=== PATIENT | male | born 1980 | race Caucasian/White ===

== ENCOUNTER 2022-01-31 09:30 | Emergency (ER) | payer MEDICAID ==
[~2022-01-31] VITALS: Ht 175.3 cm; Wt 113.6 kg
[2022-01-31 09:46] VITALS: BP 150/96
[2022-01-31] MEDS ORDERED: naproxen 500mg tablet PO ONE (10:25)
[2022-01-31] MEDS ORDERED: NAPR-56 PO (10:26)
== END 2022-01-31 10:50 | disposition home or self-care (01) ==
LOC: ER 09:30
DX: S93.401A Sprain of unspecified ligament of right ankle, initial encounter (principal); W17.89XA Other fall from one level to another, initial encounter; Y93.89 Activity, other specified; Y92.89 Other specified places as the place of occurrence of the external cause; Y99.8 Other external cause status
CPT/HCPCS: 29505; 73610; 99283

== ENCOUNTER 2024-04-14 10:46 | Emergency (ER) | payer MEDICAID, OTHER ==
[~2024-04-14] VITALS: Ht 175.3 cm; Wt 90.9 kg
[2024-04-14 11:36] LABS: BASOPHILS # (AUTO) 0.1 X10'3 (0-0.2); BASOPHILS % (AUTO) 0.5 % (0-1); EOSINOPHILS # (AUTO) 0.1 X10'3 (0-0.9); EOSINOPHILS % (AUTO) 0.7 % (0-6); HEMATOCRIT 46.5 % (42.0-52.0); HEMOGLOBIN 15.8 g/dl (14.0-17.9); LYMPHOCYTES # (AUTO) 1.8 X10'3 (1.1-4.8); LYMPHOCYTES % (AUTO) 18.2 % (21-51); MEAN CORPUSCULAR HGB CONC 33.9 g/dL (33.0-36.5); MEAN CORPUSCULAR VOLUME 85.5 FL (78-98); MEAN PLATELET VOLUME 7.7 FL (7.4-10.4); MONOCYTES # (AUTO) 0.8 X10'3 (0-0.9); NEUTROPHILS % (AUTO) 72.6 % (42-75); PLATELET COUNT 383 X10'3 (140-440); RED BLOOD COUNT 5.44 X10'6 (4.70-6.10); RED CELL DISTRIBUTION WIDTH 13.6 % (11.5-14.5); WHITE BLOOD COUNT 9.7 X10'3 (4.5-11.0)
[2024-04-14 11:56] LABS: ALBUMIN 3.6 G/DL (3.4-5.0); ANION GAP 6 (8-16); BLOOD UREA NITROGEN 11 MG/DL (7-18); BUN/CREATININE RATIO 11.5 (10.0-20.0); CALCIUM 9.3 MG/DL (8.5-10.1); CHLORIDE 102 MMOL/L (99-107); CREATININE 0.96 MG/DL (0.60-1.10); GLUCOSE 172 MG/DL (70-104); POTASSIUM 3.8 MMOL/L (3.5-5.1); PRO BRAIN NATRIURETIC PEPTIDE < 30 PG/ML (0-125); SODIUM 137 MMOL/L (135-145); TOTAL CARBON DIOXIDE 29.5 MMOL/L (24-32); eCRCL 100 ML/MIN; eGFR 86 ML/MIN
[2024-04-14] MEDS ORDERED: OMEP40CA21 PO (12:09)
[2024-04-14] MEDS: mag hydrox/Alum hydrox/simeth 30ml oral suspension PO ONE (12:31)
[2024-04-14] MEDS: LIDOcaine 2% Viscous 15ml cup MM ONE (12:31)
[2024-04-14 12:36] VITALS: BP 121/87; PULSE 95; RESP 19; TEMP 98.9; O2SAT 98
== END 2024-04-14 12:33 | disposition home or self-care (01) ==
LOC: ER 10:47
DX: K21.9 Gastro-esophageal reflux disease without esophagitis (principal); R07.89 Other chest pain; Z79.899 Other long term (current) drug therapy
CPT/HCPCS: 36415; 71045; 80048; 83880; 84484; 85025; 93005; 99285

== ENCOUNTER 2024-09-22 20:40 | Emergency (ER) | payer MEDICAID ==
[~2024-09-22] VITALS: Ht 175.3 cm; Wt 131.6 kg
[2024-09-22] MEDS ORDERED: IBUP-1984 PO (21:52)
[2024-09-22] MEDS ORDERED: TAM75C PO (21:52)
[2024-09-22] MEDS: acetaminophen 325mg tablet PO ONE ×2 (22:00→22:06)
[2024-09-22] MEDS: oseltamivir phos 75mg capsule PO ONE (22:00)
[2024-09-22] MEDS: ketorolac trometh 15mg/ml vial 15 MG/ML ML IM ONE (22:01)
[2024-09-22 23:08] VITALS: BP 123/73; PULSE 99; RESP 18; TEMP 98.9; O2SAT 97
== END 2024-09-22 23:19 | disposition home or self-care (01) ==
LOC: ER 20:41
DX: J10.1 Influenza due to other identified influenza virus with other respiratory manifestations (principal); Z20.822 Contact with and (suspected) exposure to COVID-19
CPT/HCPCS: 36415; 87502; 87503; 87811; 96372; 99283; J1885

== ENCOUNTER 2025-06-15 18:16 | Emergency (ER) | payer MEDICAID ==
[~2025-06-15] VITALS: Ht 175.3 cm; Wt 127.6 kg
[2025-06-15 18:19] VITALS: TEMP 97
--- NOTE | 2025-06-15 18:23 | ELECTROCARDIOGRAPH REPORT ---
[facility] Test Date: 2025-06-15 Test Time: 18:21:07 Pat Name: ADRI CASTRO Department: EMERGENCY ROOM [id number] Room: Gender: M [employer]: : 1980 Requested By: FABIAN ARRIAGA Order Number: [id number] Reading MD: Measurements Intervals [place] Rate: 91 P: 59 NV: 135 QRS: 46 QRSD: 90 T: 16 QT: 339 QTc: 418 Interpretive Statements Sinus rhythm Low voltage, precordial leads Minimal ST depression, diffuse leads Baseline wander in lead(s) I,II,aVR Please click the below link to view image of tracing.
--- NOTE | 2025-06-15 18:40 | RADIOLOGY REPORT ---
CHEST RADIOGRAPH Indication: CP Technique: Single frontal view of the chest was obtained Comparison: DI CHEST,SINGLE VIEW on DOS: 04/14/24 FINDINGS: Lines and Tubes: None Lungs: No focal consolidation. Pleura: No effusion. No pneumothorax. Cardiomediastinal contours: Unremarkable Bones: No acute osseous abnormality. IMPRESSION: No acute cardiopulmonary disease.
[2025-06-15 18:54] LABS: MEAN PLATELET VOLUME 7.5 FL (7.4-10.4); RED CELL DISTRIBUTION WIDTH 13.4 % (11.5-14.5)
[2025-06-15 19:13] LABS: CREATININE 0.87 MG/DL (0.60-1.10); PRO BRAIN NATRIURETIC PEPTIDE < 30 PG/ML (0-125); TOTAL CARBON DIOXIDE 31.4 MMOL/L (24-32); eCRCL 109 ML/MIN; eGFR > 90 ML/MIN
[2025-06-15 20:33] VITALS: BP 151/97; PULSE 80; RESP 16; O2SAT 98
--- NOTE | 2025-06-15 21:31 | Physician Documentation ---
History of Present Illness ~ Chief Complaint: Chest Pain Stated Complaint: CHEST PAIN Time Seen by MD: 19:38 Primary Medical Doctor: [facility] Mode of Arrival: Ambulatory HPI Patient is seen today with complaints of intermittent chest pain. Patient denies any history of TX or cardiovascular disease. Patient admits to being close to prediabetic. Patient does admit to history of GERD and PUD and treatment with GI cocktail and antacids. Patient denies any significant aggravating or relieving factors of his epigastric abdominal pain/lower chest pain. He currently denies any shortness of breath or nausea, vomiting, diarrhea. Patient also does admit to significant dental pain and history of dental abscesses and states he would like an antibiotic. Patient has no other concern or complaint at this time. Medication Reconciliation Allergies: Coded Allergies: No Known Allergies (Unverified , 06/15/25) Past Medical History Past Medical History: No Pertinent History Past Surgical History: noncontributory Drug Use: none Lives In: Home Review of Systems Constitutional: Denies: chills, fever, weakness Eyes: Denies: pain, blurred vision ENT: Denies: ear pain, nose pain, throat pain, mouth pain Respiratory: Denies: cough, shortness of breath Cardiovascular: Denies: chest pain, palpitations Gastrointestinal: Denies: abdominal pain, nausea, vomiting Genitourinary: Denies: burning, dysuria Male Genitalia: Denies: penile discharge, testicular pain Neurological: Denies: headache, dizziness Musculoskeletal: Denies: pain, swelling Integumentary: Denies: rash, lesions Allergic/Immunologic: Denies: hives, itching Hematologic/Lymphatic: Denies: no symptoms reported Psychiatric: Denies: depression, anxiety Physical Exam Vital Signs: Temperature: 97.0, Heart Rate: 80, Respiratory Rate: 16, BP: 151/97, Pulse Oximetry: 98, Weight: 127.600 Oxygen Flow Rate: 0 Physical Exam General: Awake and Alert, no acute distress. HEENT: Patient on exam does have significant dental decay of left lower molars without periapical abscess visualized. Conjunctiva pink, Sclera clear, Mucus Me mbranes moist. Neck: Supple without masses and tenderness. Resp: Unlabored. Lungs clear to auscultation bilaterally. Heart: Regular Rate and rhythm, normal S1 and S2 without murmur, rub or gallop. Abdomen: Soft and mild epigastric tenderness to palpation, no organomegaly, no guarding, no rebound tenderness, normoactive bowel sounds. Extremities: No cyanosis,clubbing or edema. Skin: Warm and Dry. Progress Results/Orders Results/Orders Completed Orders - NAT CORMIER Amoxicillin Capsule (Trimox Capsule) (06/15/25 20:57) Mag & Alum Hydrox/Simeth Susp (Maalox Or (06/15/25 20:57) Lidocaine 2% Viscous (Xylocaine 2% Visco (06/15/25 20:57) Pantoprazole Tablet (Protonix) (06/15/25 20:57) Medications Received in ER Medications (Trade) Dose Ordered Sig/Anderson Route PRN Reason Start Time Stop Time Status Last Admin Dose Admin (Trimox capsule) 1,000 mg ONCE STAT PO 06/15/25 20:57 06/15/25 21:00 DC 06/15/25 22:06 1,000 MG (Maalox oral suspension) 30 ml ONCE STAT PO 06/15/25 20:57 06/15/25 21:00 DC 06/15/25 22:05 30 ML (Xylocaine 2% Viscous 15mL cup) 15 ml ONCE STAT MM 06/15/25 20:57 06/15/25 21:00 DC 06/15/25 22:05 15 ML (Protonix) 40 mg ONCE STAT PO 06/15/25 20:57 06/15/25 21:00 DC 06/15/25 22:06 40 MG Vital Signs 06/15/25 06/15/25 06/15/25 18:19 20:30 20:33 Temp 97.0 Pulse 90 80 Resp 16 16 16 B/P (MAP) 152/91 151/97 (115) Pulse Ox 98 98 O2 Flow Rate 0 0 Laboratory Tests Test 06/15/25 18:21 06/15/25 20:38 06/15/25 21:23 White Blood Count 10.3 Red Blood Count 5.67 Hemoglobin 16.5 Hematocrit 47.0 Mean Corpuscular Volume 82.9 Mean Corpuscular Hemoglobin 29.1 Mean Corpuscular Hemoglobin Concent 35.1 Red Cell Distribution Width 13.4 Platelet Count 393 Mean Platelet Volume 7.5 Neutrophils (%) (Auto) 68.0 Lymphocytes (%) (Auto) 22.2 Monocytes (%) (Auto) 8.1 Eosinophils (%) (Auto) 0.9 Basophils (%) (Auto) 0.8 Neutrophils # (Auto) 7.0 Lymphocytes # (Auto) 2.3 Monocytes # (Auto) 0.8 Eosinophils # (Auto) 0.1 Basophils # (Auto) 0.1 CBC Comment Sodium Level 139 Potassium Level 3.6 Chloride Level 100 Carbon Dioxide Level 31.4 Anion Gap 8 Blood Urea Nitrogen 7 Creatinine 0.87 Estimated GFR/1.73 m2 > 90 BUN/Creatinine Ratio 8.0 L Glucose Level 212 H Calcium Level 8.9 Troponin I High Sensitivity < 4 L 4 < 4 L Troponin I High Sens Percent Delta Troponin I Hi Sens Absolute Change Pro-B-Type Natriuretic Peptide < 30 Albumin 3.6 Chemistry Comments Heart Score: Heart Score Response (Comments) Value History Slightly Suspicious 0 EKG Normal 0 Age <45 0 Risk Factors 1 or 2 risk factors 1 Troponin Normal limit 0 Total 1 Medical Decision Making Additional information obtaine: N/A Findings Patient is seen today with complaints of intermittent chest pain. Patient denies any history of TX or cardiovascular disease. Patient admits to being close to prediabetic. Patient does admit to history of GERD and PUD and treatment with GI cocktail and antacids. Patient denies any significant aggravating or relieving factors of his epigastric abdominal pain/lower chest pain. He currently denies any shortness of breath or nausea, vomiting, diarrhea. Patient also does admit to significant dental pain and history of dental abscesses and states he would like an antibiotic. Patient has no other concern or complaint at this time. Patient did receive GI cocktail in the ED today which did help alleviate patient's symptoms. Patient also received amoxicillin 1000 mg by mouth in the ED today for dental abscess. Prescription for antacid and sucralfate sent to patient's pharmacy to be taken as prescribed. Prescription of amoxicillin 875 mg one tab by mouth twice a day for 10 days sent to patient's pharmacy [id number] in [place]. Patient will follow up with primary care in 5-10 days if no better as needed sooner. Return to ED with any worsening, concerning or changing symptoms. Heart Score: 1 Differential Dx:Considerations: Include: angina, chest wall pain, esophageal reflux/spasm, gastritis, pericarditis Departure Disposition: HOME / SELF CARE / HOMELESS Impression: Primary Impression: Chest pain Qualified Codes: R07.9 - Chest pain, unspecified Additional Impressions: PUD (peptic ulcer disease) Dental abscess Condition: Improved Discharge Instructions: Nonspecific Chest Pain, Adult Additional Instructions: Patient did receive GI cocktail in the ED today which did help alleviate patient's symptoms. Patient also received amoxicillin 1000 mg by mouth in the ED today for dental abscess. Prescription for antacid and sucralfate sent to patient's pharmacy to be taken as prescribed. Prescription of amoxicillin 875 mg one tab by mouth twice a day for 10 days sent to patient's pharmacy [facility] in [place]. Patient will follow up with primary care in 5-10 days if no better as needed sooner. Return to ED with any worsening, concerning or changing symptoms. Referrals: NO PRIMARY CARE PROVIDER (PCP) Prescriptions Pantoprazole Sodium (PROTONIX tablet) 40 Mg Tablet.dr 1 TAB PO DAILY for 30 Days, #30 TAB 0 Refills Prov: NAT CORMIER 06/15/25 Sucralfate (Sucralfate) 1 Gram Tablet 1 TAB PO Q8H for 10 Days, #30 TAB 0 Refills Prov: NAT CORMIER 06/15/25 Amoxicillin Trihydrate (Amoxicillin) 875 Mg Tablet 1 TAB PO Q12H for 10 Days, #20 TAB Prov: NAT CORMIER 06/15/25 Signature Scribe Signature: No scribe Attestation: No scribe NAT CORMIER Jun 15, 2025 21:31
[2025-06-15] MEDS: LIDOcaine 2% Viscous 15ml cup MM STA (22:05)
[2025-06-15] MEDS: mag hydrox/Alum hydrox/simeth 30ml oral suspension PO STA (22:05)
[2025-06-15] MEDS: pantoprazole 40mg Tablet.DR PO STA (22:06)
[2025-06-15] MEDS ORDERED: AMOX875T10 PO (22:37)
[2025-06-15] MEDS ORDERED: PANT-47 PO (22:37)
[2025-06-15] MEDS ORDERED: SUCR1TAB PO (22:37)
== END 2025-06-15 23:10 | disposition home or self-care (01) ==
LOC: ER 18:17
DX: R07.9 Chest pain, unspecified (principal); K27.9 Peptic ulcer, site unspecified, unspecified as acute or chronic, without hemorrhage or perforation; K04.7 Periapical abscess without sinus
CPT/HCPCS: 36415; 71045; 80048; 83880; 84484; 85025; 93005; 99285